=== PATIENT | male | born 2005 ===

== ENCOUNTER 2025-08-17 10:35 | Emergency (ER) | payer OTHER, SELFPAY ==
--- OUTSIDE RECORDS SUMMARY | 2025-08-17 10:35 | XMS_ITS | Encounter Summary ---
Author Organization [facility] Address [address] [place] [phone] Phone Care Team Providers Care Gasket Former Name Role Phone Jaymie Carvalho MD Primary Care Provider [phone] Reason for Visit * Reason Comments ED Admission Encounter Details Date Type Department Care Team (Late st Contact Info) Description 08/17/2025 10:35 AM EDT - Present Emergency [facility] - Patient Ping Social History Tobacco Use Types Packs/Day Years Used Date Smoking Tobacco: Never Smokeless Tobacco: Never Alcohol Use Standard Drinks/Week Comments Never 0 (1 standard drink = 0.6 oz pur e alcohol) Hunger/Food Answer Date Recorded In the last 12 months, did y ou or your family ever eat less than you felt you should because there wasn't enough money for food? No 08/22/2024 Stable Housing Answer Date Recorded Are you worried that in the next 2 months you may not have stable housing? No 08/22/2024 Transportation Concerns Answer Date Rec orded In the last 12 months, have you or your family ever had to go without healthcare because you didn't have a way to get there? No 08/22/2024 Hazards in Home Answer Date Recorded Think about the place you li ve. Do you have problems with any of the following? Pests (mice or roaches), mold, no/not working smoke detectors, water leaks, no window guards. No 2023 Financing Utilities Answer Date Recorde d In the last 12 months, has t he electric, gas, oil, or water company threatened to shut off your services in your home? No 08/22/2024 Safety at Home Answer Date Recorded Are you or your family worried about feeling saf e in your home? No 08/22/2024 Outside Support Answer Date Recorded Do you feel that you need mo re support from other people or programs to help you care for yourself or your family? No 08/22/2024 Understanding Health Concerns Answer Da te Recorded Do you need help understandi ng your or your child's healthcare needs (diagnosis, medications, plan, etc.)? No 08/22/2024 Financing Health Concerns Answer Date R ecorded In the last 12 months, was t here a time when your child needed to see a doctor or get medications or supplies but could not because of cost? No 08/22/2024 Missing School or Work Answer Date Gabriel rded Did you or your child miss s chool or work because of a health problem that could have been avoided? No 08/22/2024 Child Education Answer Date Recorded Do you have concerns about y our/your child's learning or behavior in school, preschool, or daycare? No 08/22/2024 Sex and Gender Information Value Date Recorded Sex Assigned at Male 08/22/2024 3:08 PM EDT Legal Sex Male 5:10 PM EDT Gender Identity Male 08/22/2024 3:08 PM EDT Sexual Orientation Straight 08/22/2024 3: 08 PM EDT documented as of this encounter Plan of Treatment Not on file documented as of this encounter Visit Diagnoses Not on filedocumented in this encounter Care Teams Gasket Former Relationship Specialty Start Date End Date Jaymie Carvalho MD [address] [place] [address] ZUL[place] Burns [id number] PCP - General 06/16/17 documented as of this encounter
[2025-08-17 10:41] VITALS: BP 130/72; PULSE 67; RESP 20; TEMP 36.6; O2SAT 99; BMI 30.9
--- NOTE | 2025-08-17 11:00 | ED.GENADULT ---
HPI - General Adult General Chief complaint: Dental/Oral Stated complaint: jaw pain Time Seen by Provider: 08/17/25 10:59 Source: patient, family (mother), RN notes reviewed and old records reviewed Mode of arrival: ambulatory Limitations: no limitations History of Present Illness ED Provider: Mari HPI narrative: Patient is a 20-year-old male with history of TMJ dysfunction presenting to the emergency department with complaint of left-sided jaw pain radiating to his ear for the past 2 days. Mother reports that patient was seen at the dentist on Monday, had fillings done to his left upper jaw and had to sit with his mouth open for an extended period of time. She feels this may have triggered his current symptoms. She reports that in the past he has been referred to a maxillofacial surgeon for evaluation of the TMJ dysfunction but was told by the maxillofacial office that they no longer see patients for TMJ dysfunction. She tried a different office but they did not take patient's insurance. His regular dentist recommended a custom nightclub manager to prevent grinding. Patient denies any recent nasal congestion or fevers. He denies any difficulty swallowing but does report increased pain with opening and closing his jaw. MD complaint: jaw pain Onset (ago): day(s) Related Data Home Medications ?Medication ?Instructions ?Recorded ?Confirmed albuterol sulfate 90 mcg/actuation 2 - 4 puff inhalation Q4H PRN 08/11/25 aerosol inhaler wheezing ergocalciferol (vitamin D2) 1,250 1,250 mcg PO QWEEK 08/11/25 mcg (50,000 unit) capsule fluphenazine HCl 2.5 mg tablet 2.5 mg PO DAILY 08/11/25 loratadine 10 mg tablet 10 mg PO DAILY 08/11/25 Previous Rx's ?Medication ?Instructions ?Recorded cyclobenzaprine 10 mg tablet 10 mg PO TID PRN muscle spasm #10 08/17/25 tabs Allergies Allergy/AdvReac Type Severity Reaction Status Date / Time No Known Allergies (No Known Allergy Verified 08/17/25 10:42 Allergies*) Review of Systems Review of Systems: As per HPI Yes all other systems are reviewed and are negative Constitutional: Constitutional: Reports as per HPI [facility] Past Medical History Medical History (Updated 08/17/25 @ 12:16 by Arlin Guerra NP) Tourette syndrome Social History Social History Smoked in Last 30 Days: No Use of substances other than those prescribed or required for medical reasons: No Advance Directives: No Advance Directives Information Provided: No Do you have a plan to hurt others: No Plan Physical Exam ED Vital Signs: Vital Signs - 24 hr 08/17/25 10:41 Temperature 97.9 F Pulse Rate 67 Respiratory Rate 20 Blood Pressure 130/72 Pulse Oximetry 99 Oxygen Delivery Method Room Air BMI result Body Mass Index 30.9 Vital signs have been reviewed and appear to be correct. Blood pressure normal. Heart rate normal. Respiratory rate normal. Temperature normal. Oxygen saturation normal. Const General: cooperative, healthy appearing and no acute distress Orientation/consciousness: oriented to person, oriented to place, oriented to time and patient oriented x3 Limitations: no limitations HENMT Head: Yes normocephalic and Yes atraumatic Ears: hearing grossly normal bilaterally, external ears normal, TM's normal bilaterally, EAC's normal, mastoids normal bilaterally and no periauricular adenopathy General nose exam: Normal external nose present Face and sinus: Yes face symmetric Mouth: Normal oral and palatal mucosa present, lip normal, tongue normal, oropharynx normal, moist mucous membranes, no audible dysphonia, no drooling, abnormal TMJ (bilateral clicking, left sided tenderness to palpation), no trismus and other (pain with opening and closing jaw but has full ROM) Teeth and gingiva: dentition normal and other (no gingival edema, erythema, fluctuance to L upper jaw in area of fillings) Throat: Yes posterior oropharynx normal and Yes uvula midline Eyes Pupils: Equal, round and reactive pupils present Neck Neck: Yes normal visual inspection, Yes no lymphadenopathy and Yes supple Resp Effort & Inspection: normal respiratory effort and able to speak in complete sentences Auscultation: clear to auscultation bilaterally Cardio Rate: regular rate Rhythm: regular rhythm Heart sounds: S1 normal heart sound present and S2 normal heart sound present GI Palpation (GI): Soft to palpation and nontender Auscultation: normoactive bowel sounds General: Yes no CVA tenderness Back/Spine/Pelvis Back: no CVA tenderness Skin General skin exam: elasticity normal and turgor normal Neuro General: oriented to person, oriented to place, oriented to time, patient oriented x3, moves all extremities, no focal motor deficits and CN's II-XI intact bilaterally Cranial nerves: Yes Equal, round and reactive pupils present Cognition (Neuro): normal cognition Extrem General: Yes full ROM, Yes no pedal edema and Yes no calf tenderness Psych Mental Status: mental status grossly normal Affect: normal affect Thought process: Normal thought process present Medications Administered Discontinued Medications Generic Name Dose Route Start Last Admin Trade Name Ishaan PRN Reason Stop Dose Admin Acetaminophen 975 mg 08/17/25 11:37 08/17/25 11:48 Acetaminophen 325 Mg Tablet PO 08/17/25 11:38 975 mg ONCE ONE Administration Diazepam 2 mg 08/17/25 11:37 08/17/25 11:48 Diazepam 2 Mg Tablet PO 08/17/25 11:38 2 mg ONCE ONE Administration Ketorolac Tromethamine 30 mg 08/17/25 11:37 08/17/25 11:48 Ketorolac Tromethamine 30 Mg/Ml Vial IM 08/17/25 11:38 30 mg ONCE ONE Administration Medical Decision Making Medical Decision Making [facility] Narrative: Patient is a 20-year-old male with history of TMJ dysfunction presenting to the emergency department with complaint of left-sided jaw pain radiating to his ear for the past 2 days. On exam patient is awake, A+Ox3, VS WNL, afebrile, normal neurological exam without focal deficits, physical exam findings as above. Given reported symptoms and physical exam findings, initial differential includes but is not limited to TMJ dysfunction, toothache. Do not suspect dental infection or abscess, no evidence of otitis externa or otitis media on exam. Do not suspect jaw dislocation. Will try medicating with valium and toradol. Patient reports good relief of symptoms after Valium and Toradol. Discussed with mother that patient can purchase an [id number] nightguard which is not as effective as the custom nightclub manager but still will provide some relief. Advised alternating Tylenol and ibuprofen, will send patient with prescription for Flexeril. Will also provide referrals to other maxillofacial surgeons. Advised him to avoid gum chewing as this can exacerbate his symptoms. Return precautions discussed. Patient and mother verbalized understanding of and agreement with plan. Differential Diagnosis Differential Diagnoses: The differential diagnosis associated with the presentation includes As per [facility] Admission/Observation Consideration of admission/observation: Escalation of care including admission/observation considered Patient would have been admitted to the hospital and transferred to appropriate facility had their clinical presentation warranted hospital admission. Independent Historian Clinical information obtained from an independent historian. History obtained from or confirmed by: Parent External Record Review External record reviewed: Inpatient record, Office record and Outpatient record Prescription Management I considered prescription management with: Other Discharge Plan Discharge Clinical Impression: Left-sided temporomandibular joint pain-dysfunction syndrome Patient Disposition: Home, Self-Care Instructions: Temporomandibular Disorder (ED) Additional Instructions: You were seen in the emergency department today for left sided jaw pain. Your evaluation did not show evidence of conditions requiring emergent medical treatment at this time. We recommend that you purchase an [id number] nightguard to help with your symptoms. These can typically be found at any [employer], [employer], [employer], etc.. You are also being referred to maxillofacial surgery for further evaluation and management of your symptoms. You can use 600 milligrams of ibuprofen or 650 milligrams of Tylenol every 6 hours as needed for pain. If necessary, you can alternate these medications every 3 hours. For example, at 9 a.m. take Tylenol, then at noon take ibuprofen, then at 3 p.m. take Tylenol, etc.. Be sure to drink plenty of fluids while you are taking these medications. You have been prescribed cyclobenzaprine which is a muscle relaxer you can use every 8 hours as needed. Use caution as this medication can cause drowsiness, do not combine with alcohol. Follow up with your regular dentist if the oral surgeon you have been referred to does not take your insurance or if you have any other issues. Return to the emergency department if you are unable to open and close your jaw, develop fever or difficulty swallowing or any other new or concerning symptoms. Prescriptions: New cyclobenzaprine 10 mg tablet 10 mg PO TID PRN (Reason: muscle spasm) Qty: 10 0RF No Action fluphenazine HCl 2.5 mg tablet 2.5 mg PO DAILY ergocalciferol (vitamin D2) 1,250 mcg (50,000 unit) capsule 1,250 mcg PO QWEEK albuterol sulfate 90 mcg/actuation HFA aerosol inhaler 2 - 4 puff inhalation Q4H PRN (Reason: wheezing) loratadine 10 mg tablet 10 mg PO DAILY Referrals: MERCEDES MCCABE [Physician, Oral Surgery] Clinical Impression: Left-sided temporomandibular joint pain-dysfunction syndrome Print Language: Armenian
--- OUTSIDE RECORDS SUMMARY | 2025-08-17 11:16 | XMS_ITS | Encounter Summary ---
Author Organization [facility] Address [address] [place] [phone] Phone Care Team Providers Care Unit Coordinator Name Role Phone Jaymie Carvalho MD Primary Care Provider [phone] Reason for Visit * Reason Comments Med Refill Encounter Details Date Type Department Care Team (Late st Contact Info) Description 04/03/2020 Refill [facility] [place] [address] [place] [address] Jaymie Carvalho MD [address] [place] [address] Seasonal allergies Social History Tobacco Use Types Packs/Day Years Used Date Smoking Tobacco: Never Smokeless Tobacco: Never Alcohol Use Standard Drinks/Week Comments Never 0 (1 standard drink = 0.6 oz pur e alcohol) Hunger/Food Answer Date Recorded No 03/25/2019 Stable Housing Answer Date Recorded No 11/07/2019 Transportation Concerns Answer Date Rec orded No 03/25/2019 Hazards in Home Answer Date Recorded No 03/25/2019 Financing Utilities Answer Date Recorde d No 03/25/2019 Safety at Home Answer Date Recorded No 03/25/2019 Outside Support Answer Date Recorded No 03/25/2019 Understanding Health Concerns Answer Da te Recorded No 03/25/2019 Financing Health Concerns Answer Date R ecorded No 03/25/2019 Missing School or Work Answer Date Gabriel rded No 03/25/2019 Sex and Gender Information Value Date Recorded Sex Assigned at Male 08/22/2024 3:08 PM EDT Legal Sex Male 5:10 PM EDT Gender Identity Male 08/22/2024 3:08 PM EDT Sexual Orientation Straight 08/22/2024 3: 08 PM EDT documented as of this encounter Miscellaneous Notes * Telephone Encounter - Jaymie Carvalho MD - 04/05/2020 11:16 AM EDT Will fill but he needs a PE help desk assistant-please call family to book annual PE; thanks * Telephone Encounter - Conchita Hutchinson LPN - 04/03/2020 8:21 AM EDT Needs a refill on loratadine 10mg. Last pe 03/24 documented in this encounter Plan of Treatment Not on file documented as of this encounter Visit Diagnoses Diagnosis Seasonal allergies Allergic rhinitis, cause unspecified documented in this encounter Care Teams Unit Coordinator Relationship Specialty Start Date End Date Jaymie Carvalho MD [address] [place] [address] [place] [id number] PCP - General 06/16/17 documented as of this encounter
--- OUTSIDE RECORDS SUMMARY | 2025-08-17 11:16 | XMS_ITS | Clinical Summary ---
Author Organization [facility] Address [address] [place] [id number] Phone Care Team Providers Care Industry Operations Investigator Name Role Phone Jaymie Carvalho MD Primary Care Provider [phone] Allergies Active Allergy Reactions Criticality Noted Date Comments Ibuprofen 09/02/2021 Contraindicated with history of kidney injury Medications Spacer/Aero-Hold ing Chambers (OPTICHAMBER ADVANTAGE) miscIndications: Cough Use with inhaler as directed 2 each 9 Active Additional Information Patient not taking.Reported on 08/22/2024 ibuprofen 200 MG tabletIndication s:Acute URI Take 2 tablets (400 mg total) by mouth every 6 (six) hours as needed for mild pain, fever or headaches. 30 tablet 3 Active acetaminophen 325 MG tabletIndication s:Acute URI Take 2 tablets (650 mg total) by mouth every 4 (four) hours as needed for fever, moderate pain or mild pain. 30 tablet 1 3 Active Nirmatrelvir&Rit onavir 300/100 (Paxlovid, 300/100,) 20 x 150 MG & 10 x 100MG tablet therapy packIndications: COVID Take 1 dose ( 2 capsules nirmatrelvir 150 mg and 1 capsule ritonavir 100 mg ) by mouth twice a day for 5 days. 1 each 3 Active Additional Information Patient not taking.Reported on 06/24/2024 loratadine 10 MG tabletIndication s:Seasonal allergies Take 1 tablet (10 mg total) by mouth once daily. 30 tablet 5 4 Active Spacer/Aero-Hold ing Chambers (AeroChamber Plus Isaias-Vu) miscIndications: Mild intermittent asthma with acute exacerbation Ut dict 1 each 3 4 Active albuterol HFA 108 (90 Base) MCG/ACT inhalerIndicatio ns:Mild intermittent asthma with acute exacerbation INHALE 2-4 PUFFS EVERY 4 (FOUR) HOURS NEEDED FOR WHEEZING OR SHORTNESS OF BREATH (OR COUGH). 1 Units 5 026 Active Active Problems Problem Noted Date Diagnosed Date Left inguinal pain 08/23/2024 Assessment & Plan (08/23/2024 8:09 AM EDT): 08/2024: Testicular U/S in 06/2024 WNL. Given improvement with stretching and positioning; suspect likely MSK in nature or compressed nerve. Discussed trying physical therapy, consider further work up if no improvement. Academic underachievement 02/24/2023 Overview (02/24/2023): Dropped out of school after sophomore year; not working or in school. Strongly encouraged to get started with school and/or work. Recommended appointment with therapist to delve into stressful causes. Mom reports some tics possibly- difficult to know for sure. Start with therapist evaluation Assessment & Plan (02/24/2023 10:39 AM EDT): Dropped out of school after sophomore year; not working or in school. Strongly encouraged to get started with school and/or work. Recommended appointment with therapist to delve into stressful causes. Mom reports some tics possibly- difficult to know for sure. Start with therapist evaluation COVID-19 vaccination refused 02/24/2023 Vitamin D deficiency 09/02/2021 Assessment & Plan (08/22/2024 3:16 PM EDT): 08/2024: Recheck Vitamin D today; refill Rx pending results Assessment & Plan (02/24/2023 10:40 AM EDT): Was deficient 2 years ago and repeat low normal but not seen since then. Will repeat now given minimal to no milk intake. Reviewed importance of calcium and vitamin d intake BMI (body mass index), pediatric, 95-99% for age 0706/04/2020 Assessment & Plan (06/04/2020 11:05 AM EDT): Given such a big weight gain from last year, will send for screening labs for comorbidities; reviewed suggestions for eating healthy and exercise Mild intermittent asthma 10/17/2019 Overview (06/04/2020): Albuterol as needed; last dose last month maybe; but not often Assessment & Plan (08/22/2024 2:58 PM EDT): 08/22/2024: Albuterol PRN. Triggers are colds and Viral URI. Can't recall last albuterol use. Assessment & Plan (02/24/2023 10:16 AM EDT): Last use of albuterol maybe 3 months ago Assessment & Plan (07/14/2022 3:06 PM EDT): OK to try albuterol Q 3-4 hours as needed to see if helps CXR order given to get if not improving in 2-3 days, or if worsening Assessment & Plan (09/02/2021 1:46 PM EDT): Hasn't needed for a few months Seasonal allergic rhinitis due to pollen 016 Overview (06/04/2020): Uses loratadine as needed seasonally Assessment & Plan (08/22/2024 2:58 PM EDT): 08/2024: Loratadine PRN with good effect Assessment & Plan (02/24/2023 10:16 AM EDT): Uses loratadine seasonally Assessment & Plan (09/02/2021 1:46 PM EDT): Uses loratadine seasonally as needed Assessment & Plan (03/25/2019 8:24 AM EDT): Just uses benadryl as needed Assessment & Plan (11/02/2017 3:08 PM EST): Has flonase and claritin but uses it rarely Resolved Problems Problem Noted Date Diagnosed Date Resolved Date Acute kidney injury 09/02/2021 02/25/20 Assessment & Plan (09/02/2021 5:14 PM EDT): I had spoken with cancellation clerk previous to this appointment, regarding abnormal ultrasound; he recommended repeating some urine and lab tests (as ordered today) and if they are normal, then no further ultrasound necessary; advised to avoid ibuprofen use in the future/vishnu him allergic because unknown for sure if ibuprofen caused the kidney injury/nephritis over the summer that he was in the ER for; discussed this with mom and patient; advised to use tylenol if necessary but to avoid ibuprofen and I will call her with results of tests Encounters Date Type Department Care Team Description 08/17/2025 10:35 AM EDT - Present Emergency [facility] - Patient Ping from Last 3 Months Immunizations Immunization Administration Dates Next Due COVID-19 Pfizer, monovalent, 12+ years ,09/02/2021 DTaP / Hep B / IPV 2005,2005, 005 DTaP 5 05/20/2009,09/22/2006 HPV Vaccine 9 Valent 11/02/2017,10/24/2016 Hep A, ped/adol 09/11/2015,08/25/2014 Hib (HbOC) 2005,2005,2005 Hib (PRP-T) 07/12/2006 IPV 05/20/2009 Influenza Split 07/23/2013,07/13/2012,07/15/2010 Influenza, injectable, quadrivalent 09/11/2015 Influenza, injectable, quadr ivalent, preservative free 02/24/2023,09/02/2021,10/16/2019,11/02,10/24/2016 Influenza, injectable, trivalent 009,08/31/2007,09/08/2006,10/26,2005 MMR 05/20/2009,03/22/2006 Meningococcal Conj (Menactra) MCV4P 09/02/2021,1 12/25/2015 Pneumococcal Conjugate 07/12/2006,2004,2005,06/03 Tdap 10/24/2016 Varicella 05/20/2009,03/22/2006 Family History Medical History Relation Name Comments Anxiety disorder Brother Tai Estrada Asthma Brother Tai Estrada Anxiety disorder Father Tai Estrada Asthma Father Tai Estrada Depression Father Tai Estrada Hypertension Father Tai Estrada PTSD Father Tai Estrada Seizures Father Tai Estrada No Known Problems Maternal Grandfather Diabetes Maternal Grandmother Migraines Mother Bryan Estrada Cancer Paternal Grandfather Diabetes Paternal Grandmother Heart attack Paternal Grandmother Anxiety disorder Sister Maryellen Estrada Depression Sister Maryellen Estrada Relation Name Status Comments Brother Tai Estrada Alive Brother: Eczem a / Asthma Father Tai Estrada Father: Asthma Maternal Grandfather Alive Maternal Grandmother Alive Mother Bryan Estrada Alive Mother: Migra jasvir Other Family history of Deafness, Family history of ADD/ADHD, Family history of Obesity, Family history of Asthma, Family history of Diabetes mellitus, Family history of Elevated cholesterol Paternal Grandfather Paternal Grandmother Alive Sister Maryellen Estrada Alive Sister: eczema Social History Tobacco Use Types Packs/Day Years Used Date Smoking Tobacco: Never Smokeless Tobacco: Never Tobacco Cessation:Counseling Given: Yes Alcohol Use Standard Drinks/Week Comments Never 0 [...] Orientation Straight 08/22/2024 3: 08 PM EDT Last Filed Vital Signs Vital Sign Reading Time Taken Comments Blood Pressure 122/82 08/22/2024 3:26 PM EDT man aul bp Pulse 111 08/22/2024 2:40 PM EDT Temperature 37.6 C (99.7 F) 08/22/2024 2:40 PM EDT Respiratory Rate 118 07/06/2023 8:34 AM EDT Oxygen Saturation 98% 07/06/2023 8:34 AM EDT Inhaled Oxygen Concentration - - Weight 96 kg (211 lb 9.6 oz) 08/22/2024 2:40 PM EDT Height 181.4 cm (5' 11.42 ) 08/22/2024 2:40 PM E DT Body Mass Index 29.17 08/22/2024 2:40 PM EDT Plan of Treatment Health Maintenance Due Date Last Done Comments Men B Vaccine (1 of 2 - Standard) 2021 Influenza Vaccines (#1) 2025 02/25/20, 09/02/2021, 10/16/2019, Additional history exists COVID-19 Vaccine (3 - 2024-2 6 season) 2025 09/24/2021, 09/02/2021 DTaP,Tdap,and Td Vaccines (7 - Td or Tdap) 10/24/2026 10/24/2016, 05/20/2009, 09/22/2006, Additional history exists Hepatitis B Vaccines Completed 2005, 2005, 2005 HIB Vaccines Completed 07/12/2006, 09/06, 2005, Additional history exists Pneumococcal Vaccine Completed 07/12/2006, 2005, 2005, Additional history exists IPV Vaccines Completed 05/20/2009, 09/06, 2005, Additional history exists MMR Vaccines Completed 05/20/2009, 03/22/2006 Varicella Vaccines Completed 05/20/2009, 03/22/2006 Hepatitis A Vaccines Completed 09/11/2015, 08/25/20 14 HPV Vaccines Completed 11/02/2017, 10/24/2016 Meningococcal Vaccine Completed 09/02/2021, 016 Insurance [employer] [facility] NON PCC [facility] ACO Care Teams Industry Operations Investigator Relationship Specialty Start Date End Date Jaymie Carvalho MD [address] [place] [address] [place] [address] PCP - General 06/16/17
--- OUTSIDE RECORDS SUMMARY | 2025-08-17 11:16 | XMS_ITS | Encounter Summary ---
Author Organization [facility] Address [address] [place] [phone] Phone Care Team Providers Care Surgery Teacher Name Role Phone Jaymie Carvalho MD Primary Care Provider [phone] Reason for Visit * Reason Comments Med Refill Encounter Details Date Type Department Care Team (Late st Contact Info) Description 08/09/2021 Refill [facility] [place] [address] [place] [address] Jaymie Carvalho MD [address] [place] [address] Vitamin D deficiency Social History Tobacco Use Types Packs/Day Years Used Date Smoking Tobacco: Never Smokeless Tobacco: Never Alcohol Use Standard Drinks/Week Comments Never 0 (1 standard drink = 0.6 oz pur e alcohol) Hunger/Food Answer Date Recorded In the last 12 months, did y ou or your family ever eat less than you felt you should because there wasn't enough money for food? No 06/04/2020 Stable Housing Answer Date Recorded Are you worried that in the next 2 months you may not have stable housing? No 06/04/2020 Transportation Concerns Answer Date Rec orded In the last 12 months, have you or your family ever had to go without healthcare because you didn't have a way to get there? No 06/04/2020 Hazards in Home Answer Date Recorded Think about the place you li ve. Do you have problems with any of the following? Pests (mice or roaches), mold, no/not working smoke detectors, water leaks, no window guards. No 2019 Financing Utilities Answer Date Recorde d In the last 12 months, has t he electric, gas, oil, or water company threatened to shut off your services in your home? No 06/04/2020 Safety at Home Answer Date Recorded Are you or your family worried about feeling saf e in your home? No 06/04/2020 Outside Support Answer Date Recorded Do you feel that you need mo re support from other people or programs to help you care for yourself or your family? No 06/04/2020 Understanding Health Concerns Answer Da te Recorded Do you need help understandi ng your or your child's healthcare needs (diagnosis, medications, plan, etc.)? No 06/04/2020 Financing Health Concerns Answer Date R ecorded In the last 12 months, was t here a time when your child needed to see a doctor or get medications or supplies but could not because of cost? No 06/04/2020 Missing School or Work Answer Date Gabriel rded Did you or your child miss s chool or work because of a health problem that could have been avoided? No 06/04/2020 Sex and Gender Information Value Date Recorded Sex Assigned at Male 08/22/2024 3:08 PM EDT Legal Sex Male 5:10 PM EDT Gender Identity Male 08/22/2024 3:08 PM EDT Sexual Orientation Straight 08/22/2024 3: 08 PM EDT documented as of this encounter Miscellaneous Notes * Telephone Encounter - Mack Cuellar LPN - 08/09/2021 11:56 AM EDT Pharm requesting refill of [facility]. Last PE 06/04/2020 documented in this encounter Plan of Treatment Not on file documented as of this encounter Visit Diagnoses Diagnosis Vitamin D deficiency documented in this encounter Care Teams Surgery Teacher Relationship Specialty Start Date End Date Jaymie Carvalho MD [address] [place] [address] [place] [address] PCP - General 06/16/17 documented as of this encounter
--- OUTSIDE RECORDS SUMMARY | 2025-08-17 11:16 | XMS_ITS | Encounter Summary ---
Author Organization [facility] Address [address] [place] [phone] Phone Care Team Providers Care Full Stack Web Developer Name Role Phone Jaymie Carvalho MD Primary Care Provider [phone] Reason for Visit * Reason Comments Med Refill Encounter Details Date Type Department Care Team (Late st Contact Info) Description 12/07/2019 Refill [facility] [place] [address] [place] [address] eVrna Oconnor, DO [address] [place] [address] Cough Social History Tobacco Use Types Packs/Day Years [...] encounter Miscellaneous Notes * Telephone Encounter - Conchita Hutchinson LPN - 12/09/2019 11:15 AM EST Needs refill on [facility]. Last pe 03/24. Last refill 10/24. Left message for parent to call [facility] back. documented in this encounter Plan of Treatment Not on file documented as of this encounter Visit Diagnoses Diagnosis Cough documented in this encounter Care Teams Full Stack Web Developer Relationship Specialty Start Date End Date Jaymie Carvalho MD [address] [facility] [place] [address] PCP - General 06/16/17 documented as of this encounter
--- OUTSIDE RECORDS SUMMARY | 2025-08-17 11:16 | XMS_ITS | Encounter Summary ---
Author Organization [facility] Address [address] [place] [address] Phone Care Team Providers Care Private Household Worker Name Role Phone Jaymie Carvalho MD Primary Care Provider [phone] Encounter Details Date Type Department Care Team (Late st Contact Info) Description 06/22/2017 Conversion Encounter [facility] [place] [address] [place], [place] [id number] Social History Tobacco Use Types Packs/Day Years Used Date Smoking Tobacco: Never Assessed Sex and Gender Information Value Date Recorded Sex Assigned at Male 08/22/2024 3:08 PM EDT Legal Sex Male 5:10 PM EDT Gender Identity Male 08/22/2024 3:08 PM EDT Sexual Orientation Straight 08/22/2024 3: 08 PM EDT documented as of this encounter Plan of Treatment Not on file documented as of this encounter Visit Diagnoses Not on filedocumented in this encounter Care Teams Private Household Worker Relationship Specialty Start Date End Date Jaymie Carvalho MD [address] [place] [address] PCP - General 06/16/17 documented as of this encounter
[2025-08-17 12:45] VITALS: BP 129/71; PULSE 66; RESP 17; TEMP 36.6; O2SAT 100
== END 2025-08-17 12:46 | disposition home or self-care (01) ==
PROVIDERS: Emergency Provider Emergency Medicine
DX: M26.622 Arthralgia of left temporomandibular joint (principal); H92.02 Otalgia, left ear
CPT/HCPCS: 96372; 99284; J1885